=== PATIENT | female | born 1980 | race Caucasian/White ===

== ENCOUNTER 2021-12-27 | Day surgery (SDC) | payer OTHER, SELFPAY ==
[2021-12-16 10:11] VITALS: BMI 22.3
--- NOTE | 2021-12-16 10:23 | PC.NURSE ---
Report to the Outpatient Waiting Room, entrance under the green pavilion located off [facility], at time 1000 on date 12/27/21. OR Time: 1200. - You and your visitor will be asked a series of questions to screen for COVID 19 for your protection. - A mask is required within the hospital. One visitor will be allowed to accompany the patient into the hospital. Patients visitor will be instructed to remain with patient at all times or leave the building. We will allow the visitor to come back to the postoperative area when patient is ready. Preoperative COVID Testing Requirements: No COVID Test needed if: (proof is required; if not received patient will have Rapid Test prior to entry) - Patient has received COVID Vaccine at least 14 days prior to procedure date or - Patient has positive COVID test result within last 90 days of surgery date. COVID Test needed if above criteria is not met Patients may have clear liquids (water, carbonated beverages, clear teas, apple juice) until 3 hours prior to surgery with a maximum of 20 ounces. - No food from midnight until time of surgery Take the following medications with a SIP of water the morning of surgery: NONE Medications to discontinue per physician: N/A Date to take last dose: N/A Please no make-up, nail slovenian, hairspray, perfume, deodorant, or body powder the day of surgery. No jewelry (including any body piercings) or valuables the day of surgery, leave them at home. Please take a shower or bath the night before, or the morning of, surgery with an antibacterial soap. Wear comfortable, loose fitting clothing. - Jewelry must be removed prior to entering the operating room. Rings and piercings that are not removed may be cut off. - The hospital will not accept responsibility for valuables. - Please leave all valuables, including medications, at home the day of surgery. If you are going home after surgery, a licensed tow bar driver must drive you home. - NO public transportation without another adult. - We recommend that an adult stay with you for 24 hours following discharge. - We also recommend that you do not drive, make important decision, drink alcoholic beverages, or take any drugs that were not prescribed by your health care provider for at least 24 hours after your discharge time. Follow any additional instructions given to you from your surgeon. Telephone instructions given to AUTUMN PATEL and asked if any additional questions and then verbalized understanding. Patient advised to call surgeon office or pre surgery nurse liaison [phone] if any additional questions.
[2021-12-27] VITALS (8 sets, daily range): BP systolic 100–124; BP diastolic 64–76; PULSE 57–85; RESP 12–17; TEMP 36.5–37.1; O2SAT 95–100
--- NOTE | 2021-12-27 09:22 | ECG_ITS ---
Measurements Intervals [place] Rate: 52 P: 48 SC: 210 QRS: 29 QRSD: 89 T: 25 QT: 458 QTc: 429 Interpretive Statements SINUS BRADYCARDIA WITH FIRST DEGREE AV BLOCK INCOMPLETE RIGHT BUNDLE BRANCH BLOCK ABNORMAL ECG Electronically Signed On 12-27-2021 12:50:42 CDT by Cooper Perales D.O.
[2021-12-27] MEDS: LACTATED RINGERS 1,000 ML 30 ML IV CONT ×2 (10:45→14:59)
[2021-12-27 10:50] LABS: Urine Cotinine NEGATIVE
[2021-12-27 10:56] LABS: Hematocrit 37.5 % (37.0-47.0); Hemoglobin 12.8 g/dL (12.0-15.0)
--- NOTE | 2021-12-27 11:09 | WPDHPUPDATE1 ---
History and Physical Update Update Date/Time: 12/27/21 11:09 History and Physical has been reviewed, including an updated exam of the patient. There are NO changes in the patient's condition. Risks, benefits, and alternatives have been discussed and questions answered. Patient agrees to proceed with procedure.
[2021-12-27] MEDS: TRANEXAMIC ACID 1,000MG/ISO100 1,000 MG/100 ML BAG 200 MG IVPB (11:20)
--- NOTE | 2021-12-27 11:43 | W.PM.PROC2 ---
Procedure Note - Detailed Date of Procedure 12/27/21 Pre-op Diagnosis Micromastia, Skin Laxity Post-op Diagnosis Same Procedure Performed 1. Bilateral augmentation mammaplasty. 2. Progressive tension abdominoplasty. Surgeon Víctor Chicas MD Findings Bilateral Augmentation Mammaplasty Marissa Espinosa Softtouch 230 cc Right - Dual plane 2 REF# [id number] SN [id number] Left - Dual plane 3 REF# [id number] SN [id number] Abdominal tissue removed 611 grams Description of Procedure She is here today for bilateral breast augmentation and progressive tension abdominoplasty. Previously and again today the risks, benefits, alternatives were discussed in extensive detail. I wanted them to be very realistic about the risks involved as well as expectations. We discussed aftercare and what to monitor for. I was very upfront about the risks of wound breakdown leading to loss of skin, open wounds, and need for additional procedures with permanent abdominal deformity. She has breast skin laxity with ptosis and understands this will persist. She may proceed with second stage mastopexy (at her expense) as a second stage if she desires. Pre-operatively she confirmed that discussed at her office visits as well. We discussed DVT/PE risks and management. Made sure answered all of their questions to their satisfaction today and consent was obtained. Marked in the preoperative holding area with their verification. The patient was taken to the operating room placed supine on the operating table. Anesthesia was provided by anesthesiology. A surgical time-out was taken. We cleansed the skin and 1% lidocaine and 0.25% Marcaine with epinephrine was used anesthetize as a field block. She was prepped and draped in a standard sterile fashion. Breast Tegaderm nipple Etienne were placed. A 15 blade used to make an incision along the inframammary fold. Dissection was continued at 45 degree angle until the chest wall as identified. I incised the pectoralis major along its inferior border and completely released the inferior border leaving the medial border intact. I created a subpectoral pocket in the appropriate dimensions based on our preoperative planning for the implant. I then copiously irrigated with saline solution and verified a strict hemostasis. Next the use a triple antibiotic and Betadine containing solution to irrigate the pocket. I washed my gloves with the triple antibiotic and Betadine solution. We washed the implant immediately upon opening it with this solution and only opened it when we needed it. I used implant funnel and no-touch technique. The implant was introduced into the pocket using the funnel. Having verified positioning of the implant this was closed using 2-0 Vicryl followed by 3-0 Monocryl in a running subcuticular 4-0 Monocryl followed by tissue glue. Abdomen I placed the patient in a flexed position to verify the upper and lower markings would reach. I then placed supine. A thorough abdominal examination was completed. Stab incisions were made and tumescent solution infiltrated. A 10 blade was used to make the upper incision. I continued dissection down to the level of fascia. Elevated just what was necessary for repair of the diastasis. I then again flexed the bed to verify the upper skin flap would reach the lower markings without tension. Once verified I placed her supine once again and a 10 blade used to make the lower incision. I elevated up to level the umbilicus and left the umbilicus intact on a well-vascularized stalk. The intervening tissue was removed. A 2 mm blunt cannula with 0.5% bupivicaine was injected deep to the fascia bilaterally. I plicated the diastasis recti using 0 PDO stratafix barbed suture. This was in 2 separate layers using 2 separate sutures as well. I repaired around the umbilicus leaving plenty of room for well-vascularized stalk of the umbilicus with 2-0 PDS. I also repaired lateral to the rectus usi
--- NOTE | 2021-12-27 11:49 | WPDANESEPPF ---
Anes - Initial Pre Proc Eval Procedure: Operation Date: 12/27/21 12:00 Proposed Procedures p Bilateral Breast Augmentation - Víctor Chicas MD s Abdominoplasty - Víctor Chicas MD Date/Time: 12/27/21 11:49 Surgeon: Víctor Chicas MD Pre Op Diagnosis: Micromastia, Skin Laxity Patient Data Age: 41 Gender: F Height: 1.63 m Weight: 61.2 kg Last Vital Signs Temp 98.8 F 12/27/21 11:00 Pulse 57 L 12/27/21 11:00 Resp 16 12/27/21 11:00 BP 118/70 12/27/21 11:00 Pulse Ox 100 12/27/21 11:00 Allergies Allergy/AdvReac Type Severity Reaction Status Date / Time No Known Allergies Allergy Verified 12/27/21 11:31 Home Medications Medication Instructions Recorded Confirmed Type carisoprodol 350 mg tablet 350 mg PO TID PRN #21 tablet 12/13/21 12/27/21 Rx docusate sodium 100 mg capsule 100 mg PO DAILY #14 cap 12/13/21 12/27/21 Rx ondansetron HCl 4 mg tablet 4 mg PO Q8H #21 tablet 12/13/21 12/27/21 Rx oxycodone-acetaminophen 5 mg-325 1 tablet PO Q6H PRN #30 tablet 12/13/21 12/27/21 Rx mg tablet lactobacillus comb no.10 20,000 mmu cells PO DAILY 12/16/21 12/27/21 History [Probiotic] Laboratory Tests 12/27/21 12/27/21 10:26 10:26 Hgb 12.8 g/dL g/dL (12.0-15.0) Hct 37.5 % % (37.0-47.0) Cotinine Negative Patient hx anesthesia problems: none Family hx anesthesia problems: none Results Review: All pre-operative results and documents have been reviewed as part of the pre-operative evaluation. [facility] Surgical History Surgical History Hx of section Hx of knee surgery Family History Family History Father Heart problem Social History Social History (Reviewed 12/13/21 @ 10:46 by Ronel Mayer Smoking status: Never smoker Alcohol intake: current Drinks per week: 1 Substance use: never Substance use type: does not use Living arrangements: with family Spiritual care concerns: No Anes - Eval Final PreProcedure Day of Procedure 12/27/21 11:49 Patient weight: normal Heart: bradycardia Lungs: clear to auscultation Airway: Mallampati scale class II Neurological: alert and oriented Last oral intake: >/= 8 hours ASA classification: II Emergent: no Anesthetic plan: proceed Anesthesia type and monitoring: general ETT and standard monitoring Results Review: All pre-operative results and documents have been reviewed as part of the pre-operative evaluation. Informed Consent: The patient's anesthetic plan and its attendant risks and benefits were discussed with the patient/family/POA. Questions were solicited and answers provided to the satisfaction of the patient/family/POA.
[2021-12-27] MEDS: LACTATED RINGERS IRRIG 1,000 ML, LIDOCAINE HCL 1% LOCAL INJ 50 ML, EPINEPHrine HCL INJ ... INFILTRATE (11:59)
[2021-12-27] MEDS: LIDO 1%/EPINEPHRINE 1:100,000 50 ML VIAL 30 ML INFILTRATE (11:59)
[2021-12-27] MEDS: NACL 0.9% IRRIG POUR BOTTLE 900 ML, GENTAMICIN SULFATE INJ 160 MG, ceFAZolin 2 GM, POVI... IRRIGATION (11:59)
[2021-12-27] MEDS: BUPIVACAINE HCL 0.25% PF 30 ML VIAL INFILTRATE (11:59)
[2021-12-27] MEDS: ceFAZolin 2 GM/D5W 50 ML 2 GM/50 ML BAG IVPB (11:59)
[2021-12-27] MEDS: fentaNYL CITRATE INJ (*CRX) 100 MCG/2 ML VIAL 25 MCG IV PUSH ×3 (15:23→15:38)
--- NOTE | 2021-12-27 16:12 | PC.NURSE ---
This patient, Anat Guy, was received from PACU on 12/27/21 at 1612. Patient/family oriented to unit policies and routines
[2021-12-27] MEDS: LACTATED RINGERS 1,000 ML 125 ML IV CONT (16:42)
[2021-12-27] MEDS: ONDANSETRON INJ 4 MG/2 ML VIAL IV PUSH (16:43)
[2021-12-27] MEDS: MORPHINE SULFATE (*CRX) 2 MG/ML INJ IV PUSH ×2 (16:43→21:56)
[2021-12-27] MEDS: ONDANSETRON INJ 4 MG/2 ML VIAL 8 MG IV PUSH (21:09)
[2021-12-27] MEDS: ENOXAPARIN 40 MG/0.4 ML SYRINGE SUB-Q (21:10)
[2021-12-27] MEDS: diphenhydrAMINE HCl INJ 50 MG/ML VIAL 25 MG IV PUSH (22:01)
[2021-12-28] VITALS: BP 99/63; PULSE 75; RESP 14; TEMP 36.6; O2SAT 96
[2021-12-28] MEDS: carisoprodoL (*CRX) 350 MG TABLET PO ×3 (00:17→11:37)
[2021-12-28] MEDS: LACTATED RINGERS 1,000 ML 125 ML IV CONT (00:30)
[2021-12-28 03:45] VITALS: BP 100/64; PULSE 67; RESP 14; TEMP 36.9; O2SAT 97
[2021-12-28] MEDS: oxyCODONE/ACETAMINOPHEN (*CRX) 5-325 MG TABLET PO ×3 (03:53→11:36)
--- NOTE | 2021-12-28 06:47 | WPDPN ---
Progress Note: A&P Assessment and Plan (1) Micromastia: Code(s): N64.82 - Hypoplasia of breast Status: Acute (2) Skin laxity: Code(s): L57.4 - Cutis laxa senilis Status: Acute Subjective Date/time seen: 12/28/21 06:47 Overnight she had some nausea and degree of emesis. She states the emesis was really nonproductive. She is now feeling much improved. Currently no nausea vomiting. No fevers or chills. No shortness of breath. No chest pain. No calf tenderness. She says she is doing well now. Review of Systems Review of Systems: All systems reviewed & are unremarkable except as noted in HPI and below Exam Narrative: Alert and oriented no obvious distress Respiratory on labored Bilateral breasts are soft. No signs of infection. No hematoma. No seroma. Abdomen soft. No signs of infection. No hematoma. No seroma. Good color and capillary refill. No calf tenderness. Negative Homans. Objective Data Vital Signs Vital Signs: Vital Signs - 24 hr 12/27/21 11:00 12/27/21 14:59 12/27/21 15:10 Temperature 37.1 C 36.5 C Pulse Rate 57 L 73 70 Respiratory Rate 16 17 16 Blood Pressure 118/70 119/67 116/66 Pulse Oximetry 100 100 100 12/27/21 15:25 12/27/21 15:40 12/27/21 15:55 Temperature Pulse Rate 68 73 61 Respiratory Rate 14 17 14 Blood Pressure 117/73 120/66 114/76 Pulse Oximetry 97 96 95 12/27/21 16:15 12/27/21 20:37 12/28/21 00:00 Temperature 36.8 C 36.8 C 36.6 C Pulse Rate 68 85 75 Respiratory Rate 16 12 14 Blood Pressure 100/64 124/71 99/63 L Pulse Oximetry 96 95 96 12/28/21 03:45 Temperature 36.9 C Pulse Rate 67 Respiratory Rate 14 Blood Pressure 100/64 Pulse Oximetry 97 Intake/Output Intake/Output: Intake & Output 12/25/21 12/26/21 12/27/21 12/28/21 23:59 23:59 23:59 23:59 Intake Total 900 1200 Output Total 600 500 Balance 300 700 Meds/Results Medications: Active Medications Generic Name Dose Route Start Last Admin Trade Name Freq PRN Reason Stop Dose Admin Carisoprodol 350 mg 12/27/21 18:00 12/28/21 05:50 Carisoprodol (*Crx) 350 Mg Tablet PO 350 mg Q6HR [place] Administration Diazepam 5 mg 12/27/21 14:38 Diazepam (*Crx) 5 Mg Tablet PO TID PRN Anxiety Diphenhydramine HCl 25 mg 12/27/21 21:35 12/27/21 22:01 Diphenhydramine Hcl Inj 50 Mg/Ml Vial IV PUSH 25 mg Q6H PRN Administration Nausea Docusate Sodium 100 mg 12/27/21 21:00 12/27/21 20:35 Docusate Sodium 100 Mg Capsule PO Not Given Q12HR [facility] Enoxaparin Sodium 40 mg 12/27/21 20:00 12/27/21 21:10 Enoxaparin 40 Mg/0.4 Ml Syringe SUB-Q 40 mg DAILY [facility] Administration Morphine Sulfate 2 mg 12/27/21 14:38 12/27/21 21:56 Morphine Sulfate (*Crx) 2 Mg/Ml Inj IV PUSH 2 mg Q2H PRN Administration Pain Ondansetron HCl 8 mg 12/27/21 20:18 12/27/21 21:09 Ondansetron Inj 4 Mg/2 Ml Vial IV PUSH 8 mg Q6H PRN Administration Nausea Oxycodone/Acetaminophen 1 - 2 tablet 12/27/21 14:38 12/28/21 03:53 Oxycodone/Acetaminophen (*Crx) 5-325 Mg Tablet PO 1 tablet Q6H PRN Administration PAIN RATED FOR 7-10 Labs Labs: Laboratory Results - last 24 hr 12/27/21 12/27/21 10:26 10:26 Hgb 12.8 Hct 37.5 Cotinine Negative
--- NOTE | 2021-12-28 06:49 | PM.DS ---
DS: Admitting Diagnosis Discharge Date 12/28/2021 Admitting Diagnosis Micromastia Skin laxity DS: Discharge Diagnosis Discharge Diagnosis (1) Micromastia: Code(s): N64.82 - Hypoplasia of breast Status: Acute (2) Skin laxity: Code(s): L57.4 - Cutis laxa senilis Status: Acute (3) PONV (postoperative nausea and vomiting): Code(s): R11.2 - Nausea with vomiting, unspecified; Z98.890 - Other specified postprocedural states Status: Acute DS: Summary Hospital Course Hospital Course: She underwent bilateral augmentation mammoplasty and progressive tension abdominoplasty. Postoperative had significant nausea. This is much improved. Now doing very well. Will discharge home. Today we did have an extensive conversation about the care. What to monitor for. Went to proceed to the ER/dial 911. She understands her activity limitations. She voiced a clear understanding. We will see her back. She will call with any questions or concerns. Time Spent with Patient Time attestation: Total time spent providing and/or coordinating discharge services: Exam Narrative: Alert and oriented no obvious distress Respiratory on labored Bilateral breasts are soft. No signs of infection. No hematoma. No seroma. Abdomen soft. No signs of infection. No hematoma. No seroma. Good color and capillary refill. No calf tenderness. Negative Homans. DS: Data Data Completed and Pending Labs on day of discharge: Labs from last 24 hours 12/27/21 12/27/21 10:26 10:26 Hgb 12.8 Hct 37.5 Cotinine Negative Discharge Plan Discharge Patient Disposition: Home, Self-Care Discharge Instructions: POST OPERATIVE DISCHARGE INSTRUCTIONS VÍCTOR CHICAS M.D. [facility] [address] [place] [address] [address] for 24 hours after anesthesia and while you are taking pain medication. Take all prescribed medication as directed Diet as tolerated. No lifting or activity that raises blood pressure for 48 hours. Regular walking / ambulation. May shower 24 hours after surgery. Once you shower do not take pain medication before showering as the combination of medication and heat may cause you to feel dizzy or pass out. No pools or tubs for 2 weeks. Slowly stand up straight as tolerated. No straining or lifting more than 20 pounds. Call with any questions or concerns. Dressing Care: Continue abdominal binder / foam 23 hours per day. Surgical bra (or sports bra) 23 hours per day. If you have any questions or concerns, please call the office . If it is after hours you will be directed to the outside production inspector exchange. Shortness of breath, chest pain, or other medical emergency dial 911 / proceed to the Emergency Room. Stand Alone Forms: General Discharge Instructions Follow-up/Referrals: Víctor Chicas MD [Physician] - 1 Week Discharge Medications: Continued docusate sodium [Colace] 100 mg capsule 100 mg PO DAILY Qty: 14 RF: 0 ondansetron HCl 4 mg tablet 4 mg PO Q8H Qty: 21 RF: 0 oxycodone-acetaminophen [Percocet] 5-325 mg tablet 1 tablet PO Q6H PRN (Reason: pain) Qty: 30 RF: 0 carisoprodol [Soma] 350 mg tablet 350 mg PO TID PRN (Reason: muscle pain) Qty: 21 RF: 0 Probiotic 20 billion cell Capsule 20,000 mmu cells PO DAILY RF: 0
[2021-12-28 09:15] VITALS: BP 100/63; PULSE 67; RESP 18; TEMP 37.2; O2SAT 95
[2021-12-28] MEDS: DOCUSATE SODIUM 100 MG CAPSULE PO (09:20)
[2021-12-28 11:25] VITALS: BP 120/78; PULSE 65; RESP 16; TEMP 36.4; O2SAT 100
--- NOTE | 2021-12-28 12:29 | WPDANESPN ---
Anes - Prog Note Post-Op Date/Time: 12/28/21 12:29 Cardiovascular status: normal Respiratory status: normal Airway patency: baseline Mental status: baseline Post-Op hydration status: normal Vital Signs: Last Vital Signs Temp 97.5 F L 12/28/21 11:25 Pulse 65 12/28/21 11:25 Resp 16 12/28/21 11:25 BP 120/78 12/28/21 11:25 Pulse Ox 100 12/28/21 11:25 Pain Score (VAS): 2/10 I/O: Intake & Output 12/27/21 12/28/21 12/28/21 23:59 07:59 15:59 Intake Total 300 1200 200 Output Total 600 500 Balance -300 700 200 Laboratory Tests 12/27/21 10:26 Post-procedural complaints: none Patient Feedback: Patient satisfied with anesthetic care.
== END 2021-12-28 11:55 | disposition home or self-care (01) ==
LOC: ANHSURGERY 11:51 → ANHOB2 16:08
PROVIDERS: Anesthesiology; PCP Family Medicine; Visit Provider Surgery Plastic and Reconstructive Surgery
PROC: (CPT 19325; principal; 2021-12-27 12:00)
PROC: (CPT 19325; 2021-12-27 12:00)
DX: N64.82 Hypoplasia of breast (principal); L57.4 Cutis laxa senilis; Z41.1 Encounter for cosmetic surgery; R11.0 Nausea
CPT/HCPCS: 19325; 15830; 80307; 85014; 85018; 93005; 99199; A9270; J0171; J0690; J1100; J1170; J1200; J1580; J1650; J2250; J2270; J2405; J2704; J2710; J3010; J7120